=== PATIENT | male | born 1970 | race Two or more races ===

== ENCOUNTER 2021-09-05 13:52 | Outpatient (CLI) | payer OTHER ==
--- NOTE | 2021-09-05 16:37 | MRI Report ---
PROCEDURE: Shoulder LT W/O INDICATIONS: SHOULDER PAIN TECHNIQUE: Noncontrast oblique coronal T2 fast spin echo with fat saturation, oblique sagittal T1 spin echo and T2 fast spin echo with fat saturation, axial T1 spin echo and T2 fast spin echo with fat saturation t hrough the shoulder. COMPARISON: None. FINDINGS: Image quality: Excellent. Rotator cuff: Tendinosis and low-grade articular and bursal surface partial-thickness tear involving distal supraspinatus at its insertion on humeral head is seen extending to muscular tendinous junctio n. Distal infraspinatus tendinosis is also noted. Distal subscapularis tendon is intact. No full-thic kness rotator cuff tendon rupture. No significant rotator cuff muscle atrophy on sagittal images. Bones and bursae: No bone marrow contusions or fractures. Moderate acromioclavicular joint osteoarth ritic changes are seen with downward osteophyte formation depressing on musculotendinous junction of supraspinatus. Mild to moderate glenohumeral joint osteoarthritic changes also noted. No significant joint effusion or subacromial subdeltoid bursal fluid is seen. Capsule and soft tissues: There is signal abnormality and contour irregularity involvingr posterior s uperior labrum at 9 to 12:00 position suggestive of extensive posterior superior labral tear. There i s a lobulated cystic structure adjacent to posterior superior labrum suggestive of peritoneal labral cyst. The long head of the biceps tendinosis is seen. The rotator interval appears normal, without fi brosis. The coracohumeral ligament is normal in thickness. IMPRESSION: 1. Tendinosis and low-grade articular and bursal surface partial-thickness tear involving distal supr aspinatus extending to muscular tendinous junction. Distal infraspinatus tendinosis. No full-thicknes s rotator cuff tendon rupture. 2. Moderate acromioclavicular joint osteoarthritis and mild to moderate glenohumeral joint osteoarthr itis. 3. Suggestion of extensive posterior superior labral tear at 9 to 12:00 position with adjacent. Kathy l cyst. 4. Proximal intra-articular portion of long head of biceps tendinosis. Reviewed by: Bharathi Cantor MD on 09/05/2021 4:36 PM PDT Approved by: Bharathi Cantor MD on 09/05/2021 4:36 PM PDT Station ID: [id number]
--- NOTE | 2021-09-05 17:05 | MRI Report ---
PROCEDURE: Shoulder RT W/O INDICATIONS: SHOULDER PAIN TECHNIQUE: Noncontrast oblique coronal T2 fast spin echo with fat saturation, oblique sagittal T1 spin echo and T2 fast spin echo with fat saturation, axial T1 spin echo and T2 fast spin echo with fat saturation t hrough the shoulder. COMPARISON: None. Findings: Supraspinatus: Mild tendinopathy with small interstitial tears. Infraspinatus: Mild tendinopathy with small partial articular surface tear. Subscapularis: No evidence of tear. Teres minor: No evidence of tear. Labrum: Blunting of the anterior labrum (series 501, images 15/16), compatible with degenerative chapin ge/tear. Biceps tendon: No evidence of subluxation or tear. Acromioclavicular joint: Mild to moderate arthrosis with T2 hyperintense signal within the articulat ion. Muscle: No significant atrophy. Bones: No evidence of fracture. Small foci of T2 hyperintense signal in the posterior humerus and inf erior glenoid, which may reflect fibrocystic change. Miscellaneous: Trace glenohumeral joint effusion. No subacromial/subdeltoid bursal fluid. No intra-articular bodies. Intact coracoclavicular ligament. IMPRESSION: 1. Mild supraspinatus tendinopathy with small interstitial tears. 2. Mild infraspinatus tendinopathy with small partial articular surface tear. 3. Blunting of the anterior labrum, compatible with degenerative change/tear. 4. Mild to moderate AC joint arthrosis. Reviewed by: Ghassan Goodson MD on 09/05/2021 5:04 PM PDT Approved by: Ghassan Goodson MD on 09/05/2021 5:04 PM PDT Station ID: [id number]
== END 2021-09-05 13:53 | disposition home or self-care (01) ==
LOC: DI 13:52
PROVIDERS: ATTEND Family Medicine
DX: M75.102 Unspecified rotator cuff tear or rupture of left shoulder, not specified as traumatic (principal); S46.812A Strain of other muscles, fascia and tendons at shoulder and upper arm level, left arm, initial encounter; M75.101 Unspecified rotator cuff tear or rupture of right shoulder, not specified as traumatic; S46.811A Strain of other muscles, fascia and tendons at shoulder and upper arm level, right arm, initial encounter; M19.012 Primary osteoarthritis, left shoulder; M19.011 Primary osteoarthritis, right shoulder; M25.812 Other specified joint disorders, left shoulder